=== PATIENT | male | born 1980 | race Two or more races ===

== ENCOUNTER 2024-03-12 22:43 | Emergency (ER) | payer MEDICAID, SELFPAY ==
[2024-03-12 22:44] VITALS: BMI 18.2
[2024-03-12 22:54] VITALS: BP 97/69; PULSE 108; RESP 18; TEMP 36.5; O2SAT 100
--- NOTE | 2024-03-12 22:57 | EKG_ITS ---
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
--- NOTE | 2024-03-12 22:57 | XR_ITS ---
Examination: AP chest single view Technique: AP portable supine chest single view Exam date and time: March 12, 2024 at 11:05 PM Indications: Patient fell today with injury to the chest, chest pain Findings: Normal heart size No pneumothorax or pulmonary contusion The osseous structures are intact Impression: No pneumothorax pulmonary contusion or hemothorax
--- NOTE | 2024-03-12 22:57 | XR_ITS ---
Examination: CT brain head without contrast. 2-D sagittal coronal reconstructions Date and time of exam:March 12, 2024 1139 hrs. Indications: Patient fell today with injury to the head, head pain CTDI: vol (mGy):51.2 DLP: (mGycm):946 Technique: Multiple CT axial sections of the brain have been obtained, 5 mm slice thickness. Contrast has not been administered. 2-D sagittal, coronal reconstructions have been obtained Low dose protocols were performed. One or more of the following dose reduction techniques were used; automated exposure control, adjustment of the mA and/or KV according to patient size, use of iterative reconstruction technique. Findings: No significant ventricular enlargement. Intra-axial or extra-axial hemorrhage density is not seen. No mass effect or midline shift Basal cisterns are not remarkable. Fourth ventricle is midline. Cranial vault intact. Impression: Negative for acute hemorrhage, mass effect or midline shift
--- NOTE | 2024-03-12 22:57 | XR_ITS ---
Examination: Fingers, right hand fifth digit 3 views Technique: AP, oblique, lateral views right hand fifth digit 3 views. Exam date and time: March 12, 2024 1105 hrs. Indications: Black fifth digit beginning 2 days ago. Findings: No acute fracture No dislocation No cortical bone obstruction Impression: No shelley cortical bone obstruction
--- NOTE | 2024-03-12 22:57 | XR_ITS ---
Examination: CT cervical spine without contrast 2-D sagittal reconstructions 2-D coronal reconstructions 3-D reconstructions. Exam date and time:March 12, 2024 at 11:42 PM Indications: Patient fell today with injury to the neck, neck pain CTDI:vol (mGy) 7.57 DLP: (mGycm) 164 Technique: Multiple 2 mm axial sections of the cervical spine have been obtained. The coronal and sagittal reconstructions have been obtained. 3-D reconstructions have been obtained. Low dose protocols were performed. One or more of the following dose reduction techniques were used; automated exposure control, adjustment of the mA and/or KV according to patient size, use of iterative reconstruction technique. Findings: Axial sections demonstrate intact base of the skull. C1 exhibit satisfactory relationship to the odontoid. No acute cervical vertebral body fracture seen. Alignment posterior spinous processes satisfactory. Impression: No acute cervical fracture.
--- NOTE | 2024-03-12 22:57 | XR_ITS ---
Examination:Left hip AP, lateral, AP pelvis 3 views Technique: Hip AP lateral, AP pelvis, 3 views Exam date and time:March 12, 2024 11:05 PM Indications: Patient fell today with injury to the left hip, left hip pain. Findings: Acute markedly displaced fracture left femoral neck, likely pathologic with 4 cm osteolytic lesion in the intertrochanteric region left hip No hip dislocation Impression: Acute markedly displaced left femoral neck fracture Suspicious for pathologic fracture with 4 cm osteolytic area in the intertrochanteric region left hip. Recommend MRI pelvis left hip follow-up
--- NOTE | 2024-03-12 22:58 | PD.EDRME ---
Rapid Medical Screening Exam [facility] Arrival date/time: 03/12/24 22:43 43M with history of DM presents to ED with L hip, head, and neck pain after he got dizzy and fell in the shower. Patient also notes his L pinky finger has been turning black. Chief Complaint: General Adult/Misc Complain Vital signs: Vital Signs Temperature 97.7 F 03/12/24 22:54 Pulse Rate 108 H 03/12/24 22:54 Respiratory Rate 18 03/12/24 22:54 Blood Pressure 97/69 03/12/24 22:54 Pulse Oximetry (%) 100 03/12/24 22:54 Oxygen Delivery Method Room Air 03/12/24 22:54
[2024-03-13] VITALS (12 sets, daily range): BP systolic 96–142; BP diastolic 69–97; PULSE 105–115; RESP 12–20; TEMP 36.6–37.2; O2SAT 96–99
[2024-03-13 00:57] LABS: Lactate (Lactic Acid) 2.4 mMol/L (0.4-2.0)
[2024-03-13 00:58] LABS: Basophils # (Auto) 0.2 Thou/mm3 (0.0-0.2); Basophils % (Auto) 1 % (0-2.5); Eosinophils % (Auto) 0 % (0-10); Hematocrit 28.2 % (41.0-53.0); Hemoglobin 9.4 g/dL (13.5-16.0); Immature Granulocytes % (Auto) 1 % (0-0); Immature Granulocytes Auto 0.18 Thou/mm3 (0.00-0.00); Lymphocytes # (Auto) 0.7 Thou/mm3 (1.0-4.8); Lymphocytes % (Auto) 4 % (10-50); Mean Corpuscular HGB Conc 33.3 g/dl (31.0-37.0); Mean Corpuscular Hemoglobin 29.3 pg (25.0-35.0); Mean Corpuscular Volume 88 fL (80-100); Monocytes % (Auto) 6 % (0-12); Neutrophils # (Auto) 15.8 Thou/mm3 (1.8-7.7); Neutrophils % (Auto) 89 % (37-80); Nucleated Red Blood Cell % 0 /100 WBC (0); Platelet Count 543 Thou/mm3 (140-440); RDW Standard Deviation 42.3 fL (35.1-43.9); Red Blood Count 3.21 Miln/mm3 (4.50-5.90); White Blood Count 17.8 Thou/mm3 (3.8-10.6)
--- NOTE | 2024-03-13 00:58 | EDNOTE_ITS ---
ED General RME/HPI General Chief complaint: General Adult/Misc Complain Stated complaint: GENERALIZE PAIN AFTER FALL IN THE SHOWER Arrival date/time: 03/12/24 22:43 RME / HPI RME / HPI narrative: 03/12/24 22:43 43M with history of DM presents to ED with L hip, head, and neck pain after he got dizzy and fell in the shower. Patient also notes his L pinky finger has been turning black. -------- Dr. Burgos's Main ED Evaluation: 43yo male with pmhx DM, HTN presents to the ED for multiple complaints. Patient states he lost and balance and slipped off his chair around 0830, reporting he hit his head on the side of the couch. Denies any loss of consciousness. Patient states he stayed on the couch for the rest of the day after he fell. He endorses having chest pain, left hip pain, nausea, a questionable fever 2 days ago, a cough, and shortness of breath. He states his foot and right pinky finger have been black for the last 5 days. He denies any headache, neck pain, abdominal pain, back pain, V/D, UTI symptoms or any other associated symptoms. Denies any tobacco or alcohol use. States he quit using illicit drugs 13 years ago. No known allergies. Patient lives at home with his brother. Patient is noncomplaint with his medications, reporting he last saw a doctor 2 and a half years ago. Related Data Previous Rx's ?Medication ?Instructions ?Recorded Hydrocodone/Acetaminophen * (NORCO 1 tab PO Q6H PRN PAIN #14 tabs 03/06/17 5/325 *) insulin glargine 100 unit/mL 15 unit (0.15 mL) subcut HS #10 mL 12/20/21 subcutaneous solution (Lantus U-100 Insulin) blood sugar diagnostic (Accu-Chek #100 ea 12/21/21 Lauren Plus test strips) lancets (Lancets,Ultra Thin) #200 ea 12/21/21 metformin 1,000 mg tablet 1,000 mg PO BID #60 tabs 12/21/21 naproxen 500 mg tablet 500 mg PO BID PRN pain #30 tabs 11/27/22 Allergies Allergy/AdvReac Type Severity Reaction Status Date / Time No Known Allergies Allergy Verified 03/13/24 02:42 Review of Systems Review of Systems Systems Reviewed: All systems reviewed, normal except as documented Narrative Review of Systems: Gen: + fever, no chills, no weight loss EYES: No discharge, no visual changes, no pain HEENT: No ear pain, no congestion, no sore throat PULM: + shortness of breath, + cough, no congestion CV: + chest pain, no dyspnea on exertion, no palpitations GI: + nausea, no vomiting, no diarrhea, no pain, no constipation : No frequency, no urgency, no dysuria Musc/skel: + hip pain, no back pain Skin: No rash. Warm and dry. Psyc: No hallucinations, no depression Heme/Lymph: No easy bleeding or bruising tendencies Neuro: No weakness, no headache ED Exam Narrative Physical exam: GEN. APPEARANCE: Patient is alert awake oriented x3 under no distress, is filthy and obviously does not take care of himself. Patient is very disheveled. VITALS: All vitals were reviewed and the pulse ox is 97% on room air, which is normal according to my interpretation. HEENT: Normocephalic, atraumatic and nontender. Patient has poor vision. Pupils are equal and reactive to light and accommodation. Oral mucosa are moist. NECK: Supple, nontender, no meningismus, no JVD. CHEST: Nontender on palpation, no deformity and no crepitus. CARDIOVASCULAR: Heart regular rhythm no murmur or gallop rub or extra beats; tachycardic. LUNGS: Clear to auscultation bilaterally with symmetrical chest rise. No laboring tachypnea or wheezing. No intercostal subcostal retraction. No rales and no rhonchi. ABDOMEN: Soft, flat, nontender at all, no guarding or rebound tenderness. There are no abnormal masses palpated. No pulsatile masses or bruits. Active and normal bowel sounds. GENITALIA: Not examined. RECTAL EXAM: Not done. EXTREMITIES: Tenderness on palpation to the left hip with shortening of the left leg. N/V is intact. There's dry gangrene to the distal part of his right 5th finger. At the right foot, there's swelling and redness with gangrenous toes. SKIN: Warm and dry, no rashes noted. MUSCULOSKELETAL: No lumbar or midline bony tenderness. There is no CVA tenderness. No paraspinal muscle spasm or tenderness. NEURO: Cranial nerves II through XII grossly intact. There is no focalization. GCS is 15. PSYCHIATRIC: Patient is in normal mood and affect, cooperative. LYMPHATICS: No major lymphadenopathy noted. Course Course Course Narrative: CXR is ordered for determining the etiology of dizziness. 0036: Sepsis alert initiated. Orders made at this time are congruent with ED Adult Sepsis Order List. Re-evaluation is to be completed. Quality Measures Possible source: skin/soft tissue Blood cultures ordered: yes Antibiotic ordered: Yes Pertinent labs: 03/13/24 03/13/24 00:33 04:20 Lactic Acid 2.4 H mMol/L 5.0 H* mMol/L (0.4-2.0) (0.4-2.0) Procalcitonin 26.18 H ng/ml (0.0-0.49) sepsis Orders Category Date Time Status EKG (ED ONLY) *Do not use* NOW Care 03/12/24 22:57 Completed Insert IV NOW Care 03/13/24 00:[address] cervical spine wo con Stat Exams 03/12/24 22:[address] foot RT wo con Stat Exams 03/13/24 01:[address] head/brain wo con Stat Exams 03/12/24 22:[address] hip LT wo con Stat Exams 03/13/24 01:40 Taken EKG (ED Only) Stat Exams 03/12/24 22:57 Draft XR chest 1V portable Stat Exams 03/12/24 22:57 Completed XR femur LT 2V Stat Exams 03/13/24 02:37 Taken XR finger RT min 2V Stat Exams 03/12/24 22:57 Completed XR hip LT w pelvis 2-3V Stat Exams 03/13/24 02:36 Taken XR hip LT w pelvis min 4V Stat Exams 03/12/24 22:57 Completed ABG [Arterial Blood Gas] Stat Lab 03/13/24 03:31 Completed Alcohol, Blood Medical Stat Lab 03/13/24 02:06 Completed Beta Hydroxybutyrate Stat Lab 03/13/24 02:06 Completed Blood Culture (Lab) Stat Lab 03/13/24 00:38 Received CBC Stat Lab 03/12/24 22:57 Completed Comprehensive Metabolic Panel Stat Lab 03/12/24 22:57 Completed Drug Screen,Urine Stat Lab 03/13/24 01:57 Completed INR [Prothrombin Time with INR] Stat Lab 03/12/24 23:53 Completed Lactate (Lactic Acid) Stat Lab 03/12/24 22:58 Completed Lactic Acid, 3 HR Stat Lab 03/13/24 04:20 Completed PTT [Partial Thromboplastin Time] Stat Lab 03/12/24 23:53 Completed Procalcitonin Stat Lab 03/12/24 22:57 Completed Troponin I Stat Lab 03/12/24 22:57 Completed Type and Screen Stat Lab 03/13/24 04:20 Results Urinalysis Stat Lab 03/13/24 01:57 Completed Insulin Reg 100 Units/100 ml [Myxredlin] Med 03/13/24 02:06 Active 100 unit in 100 ml IV 0.1 unit/kg/hr Insulin Regular Med 03/13/24 01:45 Discontinued 15 unit IV X1 ONE POTASSIUM CHL 10 mEq IVPB [Kcl Ivpb] Med 03/13/24 02:29 Discontinued 10 meq in 100 ml IV X1 Piper/Tazo 3.375 gm [Zosyn] Med 03/13/24 02:01 Discontinued 3.375 gm in 50 ml IV X1 Sodium Chloride 0.9% 1000 ml [Ns] 1,000 ml Med 03/13/24 00:59 Discontinued IV 999 mls/hr Sodium Chloride 0.9% 1000 ml [Ns] 1,000 ml Med 03/13/24 04:51 Active IV 999 mls/hr Vancomycin Inj 1,000 mg Med 03/13/24 02:01 Discontinued Sodium Chloride 0.9% 250 ml [Ns] 250 ml IV X1 Vital Signs Vital signs: Vital Signs Temperature 97.7 F 03/12/24 22:54 Pulse Rate 108 H 03/12/24 22:54 Respiratory Rate 18 03/12/24 22:54 Blood Pressure 97/69 03/12/24 22:54 Pulse Oximetry (%) 100 03/12/24 22:54 Oxygen Delivery Method Room Air 03/12/24 22:54 Procedures -ED EKG Interpretation #1: Date of EK03/13/24 Rate: 110 Interpretation: Interpreted by me EKG Impression: Normal sinus rhythm, No ectopy, No ischemic changes, Sinus tachycardia, Normal QRS, Normal intervals, Normal axis and Non-specific ST-T MDM Patient data External records reviewed:: [facility] previous records (Per chart review, patient was seen here on 11/27/22 for an acute internal derangement of the knee.) Clinical information provided by:: patient Social determinants that could affect healthcare access:: none Patient has the following chronic illnesses:: DM, HTN How is presenting disease/condition affected by chronic disease/condition?: e xacerbated by Evaluation data The following diagnostics were reviewed and interpreted by me:: lab results, radiology exam(s) and EKG tracing(s) Lab and/or radiology exams considered but not ordered:: none Interpretation Summary: See below under MDM narrative. ----- [facility] Signed Patient: NOEL SHAFFER [facility]. Record#: [id number] Birthdate: 1980 Age/Sex: 43 / M Location: [facility] Attending Dr: Ordering Physician: Bret Espinosa PA-C Date of Service: 03/12/24 Procedure(s): XR chest 1V portable Accession Number(s): [id number] cc: Filiberto Sexton MD; Bret Espinosa PA-C; Temporary Provider,ED ~ Examination: AP chest single view Technique: AP portable supine chest single view Exam date and time: March 12, 2024 at 11:05 PM Indications: Patient fell today with injury to the chest, chest pain Findings: Normal heart size No pneumothorax or pulmonary contusion The osseous structures are intact Impression: No pneumothorax pulmonary contusion or hemothorax Dictated By: Filiberto Sexton MD Signed By: <Electronically signed by Filiberto Sexton MD in > 03/12/24 2343 -------- [facility] Signed Patient: NOEL SHAFFER [facility]. Record#: [id number] Birthdate: 1980 Age/Sex: 43 / M Location: [facility] Attending Dr: Ordering Physician: Bret Espinosa PA-C Date of Service: 03/12/24 Procedure(s): XR finger RT min 2V Accession Number(s): [id number] cc: Filiberto Sexton MD; Bret Espinosa PA-C; Temporary Provider,ED ~ Examination: Fingers, right hand fifth digit 3 views Technique: AP, oblique, lateral views right hand fifth digit 3 views. Exam date and time: March 12, 2024 1105 hrs. Indications: Black fifth digit beginning 2 days ago. Findings: No acute fracture No dislocation No cortical bone obstruction Impression: No shelley cortical bone obstruction Dictated By: Filiberto Sexton MD Signed By: <Electronically signed by Filiberto Sexton MD in OV> 03/12/246 ------ [facility] Signed Patient: NOEL SHAFFER [facility]. Record#: [id number] Birthdate: 1980 Age/Sex: 43 / M Location: [facility] Attending Dr: Ordering Physician: Bret Espinosa PA-C Date of Service: 03/12/24 Procedure(s): XR hip LT w pelvis min 4V Accession Number(s): [id number] cc: Filiberto Sexton MD; Bret Espinosa PA-C; Temporary Provider,ED ~ Examination:Left hip AP, lateral, AP pelvis 3 views Technique: Hip AP lateral, AP pelvis, 3 views Exam date and time:March 12, 2024 11:05 PM Indications: Patient fell today with injury to the left hip, left hip pain. Findings: Acute markedly displaced fracture left femoral neck, likely pathologic with 4 cm osteolytic lesion in the intertrochanteric region left hip No hip dislocation Impression: Acute markedly displaced left femoral neck fracture Suspicious for pathologic fracture with 4 cm osteolytic area in the intertrochanteric region left hip. Recommend MRI pelvis left hip follow-up Dictated By: Filiberto Sexton MD Signed By: <Electronically signed by Filiberto Sexton MD in OV> 03/12/248 ----- [facility] Preliminary Report Draft Patient: NOEL SHAFFER [facility]. Record#: [id number] Birthdate: 1980 Age/Sex: 43 / M Location: [facility] Attending Dr: Ordering Physician: Date of Service: Procedure(s): Accession Number(s): cc: ~ CT scan of the head without intravenous contrast (axial sections with sagittal and coronal reformats) March 12, 2024 at 2339 hours Clinical History: Fall No prior study is available for comparison. Findings: There is no evidence of intracranial hemorrhage, mass effect or midline shift.There is mild volume loss. The calvarium is intact. There is mild mucosal thickening in the left sphenoid sinus. The mastoid air cells and the visualized paranasal sinuses are clear. Impression: No evidence of intracranial hemorrhage, midline shift or calvarial fracture Mild volume loss. Report Electronically Signed By: Jt Sanford 03/13/2024 1:09:59 AM [EST] ----- [facility] Preliminary Report Draft Patient: NOEL SHAFFER [facility]. Record#: [id number] Birthdate: 1980 Age/Sex: 43 / M Location: [facility] Attending Dr: Ordering Physician: Date of Service: Procedure(s): Accession Number(s): cc: ~ CT scan of the cervical spine without intravenous contrast (axial sections with sagittal and coronal reformats); March 12, 2024 at 2339 hours Clinical History: Fall No prior study is available for comparison. Findings: There is no fracture or subluxation. The prevertebral soft tissues are unremarkable. Impression: No evidence of fracture or subluxation. Report Electronically Signed By: Jt Sanford 03/13/2024 1:12:32 AM [EST] -------- [facility] Preliminary Report Draft Patient: NOEL SHAFFER [facility]. Record#: [id number] Birthdate: 1980 Age/Sex: 43 / M Location: [facility] Attending Dr: Ordering Physician: Date of Service: Procedure(s): Accession Number(s): cc: ~ CT scan of the left hip without intravenous contrast (axial sections with sagittal and coronal reformats) March 13, 2024 0248 hours Clinical History: Fracture. cystic lesion? Comparison: No prior study is available for comparison. Findings: There is heterogeneous soft tissue density lesion in the left hip region causing destruction of the left femoral neck, head and lesser trochanter, the lesion is also extending to the adjacent iliopsoas and vastus intermedius muscles, approximately measuring up to 6.8x8.5x7.5cm. There are multiple air loculi in the femoral head and within the vastus intermedius. Mild diffuse subcutaneous soft tissue edema is noted in the left upper thigh. The other visualized bones are intact. There is small hip joint effusion. The visualized sacroiliac joints are unremarkable. Mild chronic cystitis versus urinary bladder outflow obstruction is noted due to mild to moderate prostatomegaly. The other visualized soft tissues including pelvic viscera are unremarkable. Impression: Large heterogeneous osteolytic lesion in the left hip region associated with pathological fracture of the left proximal femur. Multiple free air loculi in the femoral head and within the adjacent muscles as described. above, suggest deep tissue infection. Recommend clinical correlation and follow-up. Other findings as described above. Report Electronically Signed By: Fco Fernández 03/13/2024 4:57:28 AM [EST] ------- [facility] Preliminary Report Draft Patient: NOEL SHAFFER. Record#: [id number] Birthdate: 1980 Age/Sex: 43 / M Location: [facility] Attending Dr: Ordering Physician: Date of Service: Procedure(s): Accession Number(s): cc: ~ CT scan of the right foot without intravenous contrast (axial sections with sagittal and coronal reformats): March 13, 2024 at 0242 hours Clinical History: Gangrene. Comparison: No prior study is available for comparison. Findings: There is age indeterminate comminuted fracture of the proximal phalanx of the great toe with lytic changes within the bone and adjacent soft tissue swelling and free air. There are also age indeterminate displaced fractures of the 2nd, 3rd and 4th metatarsal heads with intraosseous free air loculi and in the adjacent surrounding soft tissues. Extensive free air is also noted within the soft tissues around the proximal phalanges of the 2nd,3rd and 4rth toes. Diffuse subcutaneous soft tissue edema of the foot is noted. There is severe diffuse osteopenia. The alignment is maintained. The other visualized bones are unremarkable. The ankle mortise is intact. The retrocalcaneal region is unremarkable. The sinus tarsi is within normal limits. The visualized muscles and tendons are grossly unremarkable. Impression: Findings suggestive of extensive severe deep tissue infection in the forefoot with associated multiple age indeterminate pathological fractures in the 1st, 2nd, 3rd and 4th toes as described above. Osteomyelitic changes in the proximal phalanx of the great toe. Recommend clinical correlation and follow-up. Report Electronically Signed By: Fco Fernández 03/13/2024 5:17:32 AM [EST] Medications Medications considered but not ordered:: none Medication administrations:: Medication Administration History Insulin Human Regular (Myxredlin) 100 unit in 100 mls @ 6.5 mls/hr IV .[id number] PRN; Protocol PRN Reason: PER PROTOCOL Stop: 04/12/24 02:05 Last Titration: 03/13/24 04:30 Dose: 0.1 unit/kg/hr, 6.5 mls/hr Documented By: SHALOM Co-signed By: REN Titration: 03/13/24 03:48 Dose: 0.1 unit/kg/hr, 6.5 mls/hr Documented By: SHALOM Co-signed By: SE Admin: 03/13/24 02:26 Dose: 0.1 unit/kg/hr, 6.5 mls/hr Documented By: SHALOM Co-signed By: IAN Sodium Chloride (Ns) 1,000 mls @ 999 mls/hr IV .Q1H1M ONE Stop: 03/13/24 05:51 Last Admin: 03/13/24 05:02 Dose: 999 mls/hr Documented By: SHALOM Discontinued Medications Sodium Chloride (Ns) 1,000 mls @ 999 mls/hr IV .Q1H1M ONE Stop: 03/13/24 01:59 Last Infusion: 03/13/24 01:38 Dose: Infused Documented By: Admin: 03/13/24 01:06 Dose: 999 mls/hr Documented By: SHALOM Vancomycin HCl 1,000 mg/ (Sodium Chloride) 250 mls @ 150 mls/hr IV X1 ONE Stop: 03/13/24 03:40 Last Infusion: 03/13/24 04:50 Dose: Infused Documented By: Admin: 03/13/24 02:20 Dose: 150 mls/hr Documented By: SHALOM Piperacillin/Tazobactam/Dextrose (Zosyn) 3.375 gm in 50 mls @ 100 mls/hr IV X1 ONE Stop: 03/13/24 02:30 Last Infusion: 03/13/24 02:37 Dose: Infused Documented By: Admin: 03/13/24 02:13 Dose: 100 mls/hr Documented By: SHALOM Potassium Chloride (Kcl Ivpb) 10 meq in 100 mls @ 100 mls/hr IV X1 ONE Stop: 03/13/24 03:28 Last Infusion: 03/13/24 04:50 Dose: Infused Documented By: Admin: 03/13/24 03:47 Dose: 100 mls/hr Documented By: SHALOM Insulin Human Regular (Insulin Hum Regular 1 Unit/0.01 Ml (Per Unit)) 15 unit IV X1 ONE Stop: 03/13/24 01:46 Last Admin: 03/13/24 01:50 Dose: 15 unit Documented By: SHALOM Co-signed By: ELIZABETH see above Consultations Consultation(s) initiated? (list below): Yes Diagnosis Differential Diagnosis ED Complaint MDM: left hip fx, left hip dislocation, sepsis, gangrene, hyperglycemia, DKA Most likely diagnosis given after review of the tests above:: see below Admission Indicated Admission indicated?: not indicated Explain why admission is indicated or not indicated:: Patient requires a higher [id number]. Admission Request Was there a request for admission?: No Disposition Plan Disposition Plan: other (specify) (Signed out to the next oncoming provider at 0600 pending transfer.) Medical Decision Making MDM Narrative MDM Narrative: Scribe Attestation: 03/13/24 - Annie Rodriguez am scribing for and in the presence of Dr. Burgos. Patient comes in by private vehicle with left hip pain. Patient states that he slipped and fell in the shower this past day in the morning and hit his left leg. His brother helped him to get up. And then he laid down and finally tonight he decided to come in to be evaluated. He did hit his head but he did not lose consciousness. He denies any headache or neck pain. He denies any chest pain or abdominal pain or back pain. He was nauseated but he did not vomit nor had diarrhea. He questions fever 2 days ago but not today. Here is temperature was 97.7 orally upon arrival. He denies UTI symptoms. He says that he has been coughing a little bit and had some shortness of breath because of the pain. Patient does not complain himself but on general physical exam, he has gangrene of the distal right fifth finger as well as the distal right foot, including all his toes. He says that last time he saw Was 2 and half years ago in [place]. He is diabetic and he has high blood pressure and it seems like that his vision is very poor despite the fact that he does not complain about it. He does not seem to be short of breath. On the physical exam, patient has gangrene of his distal part of the right fifth finger and also gangrene of the distal part of his right foot. He says that these happen in the last 5 days, which I doubt. The right foot is also swollen and red proximally. He is unable to move his left lower extremity due to pain in his left hip. His CBC shows a white count of 18 with 89 segs 0 bands and 4 lymphs H&H of 9.4 and 28; his platelet count is adequate. His sodium is 120 potassium is 3.2 and his chloride is 80. Therefore he is getting 2 L of normal saline IV wide open and I will give him 10 mEq of potassium IV also. His BUN and creatinine are elevated at 45 and 1.6 respectively. His blood sugar is 810. He is acidotic with CO2 of 16.7 and anion gap elevated at 19 which means that he is in DKA. His lactic acid is 2.4 but his procalcitonin is 26. I gave him Zosyn and vancomycin. At 2:20 AM I discussed this case with Dr. Dennis, our orthopedic doctor on-call, and he wants to wait for the results of the CAT scan of the left hip. At 5:10 AM, I received the results of the CAT scan of the left hip. The telemetry radiologist says that he has a large heterogeneous osteolytic lesion in the left hip region associated with pathological fracture of the left proximal femur. Multiple free air loculi in the femoral head and within the adjacent muscles suggesting deep tissue infection. Therefore I communicated this to Dr. Dennis and he recommended that the patient be transferred to a higher level of care. Therefore, this case will be passed onto the next oncoming doctor. Provider Notation: Although this document has been carefully reviewed, there may still be some phonetic and other typographical errors. These errors are purely grammatical due to imperfections in the software program and should not be construed in any way to compromise the substance of the patient's medical care during this visit. Differential Diagnosis Differential Diagnosis: left hip fx, left hip dislocation, sepsis, gangrene, hyperglycemia, DKA Lab Data 03/13/24 00:33 03/13/24 00:33 Labs: Lab Results 03/13/24 03/13/24 03/13/24 Range/Units 00:33 01:57 02:06 WBC 17.8 H (3.8-10.6) Thou/mm3 RBC 3.21 L (4.50-5.90) Miln/mm3 Hgb 9.4 L (13.5-16.0) g/dL Hct 28.2 L (41.0-53.0) % MCV 88 (80-100) fL MCH 29.3 (25.0-35.0) pg MCHC 33.3 (31.0-37.0) g/dl RDW Std Deviation 42.3 (35.1-43.9) fL Plt Count 543 H (140-440) Thou/mm3 Neut % (Auto) 89 H (37-80) % Lymph % (Auto) 4 L (10-50) % Blount % (Auto) 6 (0-12) % Eos % (Auto) 0 (0-10) % Baso % (Auto) 1 (0-2.5) % Neut # (Auto) 15.8 H (1.8-7.7) Thou/mm3 Lymph # (Auto) 0.7 L (1.0-4.8) Thou/mm3 Blount # (Auto) 1.0 H (0.0-0.8) Thou/mm3 Eos # (Auto) 0.0 (0.0-0.5) Thou/mm3 Baso # (Auto) 0.2 (0.0-0.2) Thou/mm3 Immature Gran # (Auto) 0.18 H (0.00-0.00) Thou/mm3 Absolute Nucleated RBC 0.00 (0.00-0.00) Thou/mm3 Immature Gran % 1 H (0-0) % Nucleated RBC % 0 (0) /100 WBC PT 12.0 (9.0-12.2) Seconds INR 1.1 (0.9-1.3) APTT 35.6 (22.0-36.0) Seconds Puncture Site ABG pH (7.35-7.45) ABG pCO2 (32.0-48.0) mmHg ABG pO2 (83-108) mmHg ABG HCO3 (20-26) mEq/L ABG O2 Saturation (91-98) % ABG Base Excess (-3-3) FiO2 % Sodium 120 L (136-145) mMol/L Potassium 3.2 L (3.4-5.1) mMol/L Chloride 84 L (98-107) mMol/L Carbon Dioxide 16.7 L (20.0-31.0) mMol/L Anion Gap 19 H (7-16) BUN 45 H (9-23) mg/dL Creatinine 1.6 H (0.6-1.3) mg/dL Estim Creat Clear Calc 45.4 L (>60) mL/min eGFR 54 L (60 - ) See Note BUN/Creatinine Ratio 28 H (12-20) Ratio Glucose 810 H* (74-106) mg/dL Calculated Osmolality 293 (275-295) Lactic Acid 2.4 H (0.4-2.0) mMol/L Calcium 8.8 (8.3-10.6) mg/dL Corrected Calcium 9.8 (8.5-10.1) mg/dL Total Bilirubin 0.2 L (0.3-1.2) mg/dL AST 22 (0-34) U/L ALT 13 (10-49) U/L Alkaline Phosphatase 133 H (46-116) U/L Troponin I < 0.020 (0.0-0.045) ng/mL Total Protein 6.2 (5.7-8.2) gm/dL Albumin 2.7 L (3.5-5.0) gm/dL Globulin 3.5 (2.3-3.5) gm/dL Albumin/Globulin Ratio 0.8 L (1.2-2.2) Beta-Hydroxybutyrate/Acetoacetate > 6.4 H (<0.6) mmol/L Procalcitonin 26.18 H (0.0-0.49) ng/ml Ur Collection Type Clean Catch Urine Color Lt-Yellow (Lt Yel-Yel) Urine Clarity Clear (Clear/Hazy) Urine pH 6.0 (5.0-7.0) Ur Specific [place] 1.024 (1.001-1.035) Urine Protein 1+ A (Neg - Trace) Urine Glucose (UA) 4+ A (Negative) Urine Ketones 2+ A (Negative) Urine Blood 2+ A (Negative) Urine Nitrite Negative (Negative) Urine Bilirubin Negative (Negative) Urine Urobilinogen (Auto) Negative (0.0-1.0) mg/dL Ur Leukocyte Esterase Negative (Negative) Urine RBC 20 H (0-3) /hpf Urine WBC 0 (0-5) /hpf Ur Squamous Epith Cells 0 (0-5) /hpf Urine Bacteria None (None) Urine Opiates Screen Negative (Negative) Urine Fentanyl Screen Negative (Negative) Ur Barbiturates Screen Negative (Negative) U Amphetamin/Meth Scrn Positive A (Negative) U Benzodiazepines Scrn Negative (Negative) U Cocaine Metab Screen Negative (Negative) U Marijuana (THC) Screen Negative (Negative) Ethyl Alcohol < 3.0 (0-10.0) mg/dL Blood Bank Wristband ID 03/13/24 03/13/24 Range/Units 03:31 04:20 WBC (3.8-10.6) Thou/mm3 RBC (4.50-5.90) Miln/mm3 Hgb (13.5-16.0) g/dL Hct (41.0-53.0) % MCV (80-100) fL MCH (25.0-35.0) pg MCHC (31.0-37.0) g/dl RDW Std Deviation (35.1-43.9) fL Plt Count (140-440) Thou/mm3 Neut % (Auto) (37-80) % Lymph % (Auto) (10-50) % Blount % (Auto) (0-12) % Eos % (Auto) (0-10) % Baso % (Auto) (0-2.5) % Neut # (Auto) (1.8-7.7) Thou/mm3 Lymph # (Auto) (1.0-4.8) Thou/mm3 Blount # (Auto) (0.0-0.8) Thou/mm3 Eos # (Auto) (0.0-0.5) Thou/mm3 Baso # (Auto) (0.0-0.2) Thou/mm3 Immature Gran # (Auto) (0.00-0.00) Thou/mm3 Absolute Nucleated RBC (0.00-0.00) Thou/mm3 Immature Gran % (0-0) % Nucleated RBC % (0) /100 WBC PT (9.0-12.2) Seconds INR (0.9-1.3) APTT (22.0-36.0) Seconds Puncture Site Left Radial ABG pH 7.32 L (7.35-7.45) ABG pCO2 36 (32.0-48.0) mmHg ABG pO2 78 L (83-108) mmHg ABG HCO3 19 L (20-26) mEq/L ABG O2 Saturation 95 (91-98) % ABG Base Excess -7 L (-3-3) FiO2 21 % Sodium (136-145) mMol/L Potassium (3.4-5.1) mMol/L Chloride (98-107) mMol/L Carbon Dioxide (20.0-31.0) mMol/L Anion Gap (7-16) BUN (9-23) mg/dL Creatinine (0.6-1.3) mg/dL Estim Creat Clear Calc (>60) mL/min eGFR (60 - ) See Note BUN/Creatinine Ratio (12-20) Ratio Glucose (74-106) mg/dL Calculated Osmolality (275-295) Lactic Acid 5.0 H* (0.4-2.0) mMol/L Calcium (8.3-10.6) mg/dL Corrected Calcium (8.5-10.1) mg/dL Total Bilirubin (0.3-1.2) mg/dL AST (0-34) U/L ALT (10-49) U/L Alkaline Phosphatase (46-116) U/L Troponin I (0.0-0.045) ng/mL Total Protein (5.7-8.2) gm/dL Albumin (3.5-5.0) gm/dL Globulin (2.3-3.5) gm/dL Albumin/Globulin Ratio (1.2-2.2) Beta-Hydroxybutyrate/Acetoacetate (<0.6) mmol/L Procalcitonin (0.0-0.49) ng/ml Ur Collection Type Urine Color (Lt Yel-Yel) Urine Clarity (Clear/Hazy) Urine pH (5.0-7.0) Ur Specific [place] (1.001-1.035) Urine Protein (Neg - Trace) Urine Glucose (UA) (Negative) Urine Ketones (Negative) Urine Blood (Negative) Urine Nitrite (Negative) Urine Bilirubin (Negative) Urine Urobilinogen (Auto) (0.0-1.0) mg/dL Ur Leukocyte Esterase (Negative) Urine RBC (0-3) /hpf Urine WBC (0-5) /hpf Ur Squamous Epith Cells (0-5) /hpf Urine Bacteria (None) Urine Opiates Screen (Negative) Urine Fentanyl Screen (Negative) Ur Barbiturates Screen (Negative) U Amphetamin/Meth Scrn (Negative) U Benzodiazepines Scrn (Negative) U Cocaine Metab Screen (Negative) U Marijuana (THC) Screen (Negative) Ethyl Alcohol (0-10.0) mg/dL Blood Bank Wristband ID Yes Critical Care Time Critical Care Time Critical Care Time: Yes Total Critical Care Time (min.): 60 Attestation: The high probability of sudden, clinically significant deterioration in the patient?s condition required the highest level of my preparedness to intervene urgently. The services I provided to this patient were to treat and/or prevent clinically significant deterioration. Services included the following: chart data review, reviewing nursing notes and/or old charts, documentation time, strategic planning consultant collaboration regarding findings and treatment options, medication orders and management, direct patient care, vital sign assessments and ordering, interpreting and reviewing diagnostic studies and lab tests. Aggregate critical care time includes only time during which I was engaged in work directly related to the patient?s care, as described above, whether at bedside or elsewhere in the Emergency Department. It did not include time spent performing other reported procedures or the services of residents, students, nurses or physician assistants. Discharge Plan Prescriptions/Referrals Prescriptions/Med Rec: No Action Hydrocodone/Acetaminophen * (NORCO 5/325 *) 1 TAB tablet 1 tab PO Q6H PRN (Reason: PAIN) Qty: 14 0RF Patient Comments: Has not been taking any pain meds. insulin glargine [Lantus U-100 Insulin] 100 unit/mL Solution 15 unit subcut HS Qty: 10 0RF metformin 1,000 mg tablet 1,000 mg PO BID Qty: 60 0RF (DME) lancets [Lancets,Ultra Thin] Misc See Rx Instructions .Route Qty: 200 0RF Rx Instructions: As directed (DME) Accu-Chek Lauren Plus test strp Strip See Rx Instructions .Route Qty: 100 0RF Rx Instructions: As directed naproxen 500 mg tablet 500 mg PO BID PRN (Reason: pain) Qty: 30 0RF Referrals: Temporary Provider,ED [Physician] - In 1 week Problem List Clinical Impression: Fall, Fracture of femoral neck, left, closed, Electrolyte imbalance, DKA (diabetic ketoacidosis), Noncompliance with medication regimen, Gangrene of right foot, Gangrene of finger of right hand, 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
[2024-03-13] MEDS: SODIUM CHLORIDE 0.9% 1000 ML 1,000 ML 999 ML IV ×2 (01:06→05:02)
--- NOTE | 2024-03-13 01:10 | PRELIM_ITS ---
CT scan of the head without intravenous contrast (axial sections with sagittal and coronal reformats) March 12, 2024 at 2339 hoursClinical History: FallNo prior study is available for comparison. Marcelo escamillas:There is no evidence of intracranial hemorrhage, mass effect or midline shift.There is mild vol ume loss. The calvarium is intact. There is mild mucosal thickening in the left sphenoid sinus. The m astoid air cells and the visualized paranasal sinuses are clear.Impression:No evidence of intracrania l hemorrhage, midline shift or calvarial fractureMild volume loss. Report Electronically Signed By: Isabel Sanford 03/13/2024 1:09:59 AM [EST]
--- NOTE | 2024-03-13 01:13 | PRELIM_ITS ---
CT scan of the cervical spine without intravenous contrast (axial sections with sagittal and coronal reformats); March 12, 2024 at 2339 hours Clinical History: Fall No prior study is available for co mparison. Findings:There is no fracture or subluxation. The prevertebral soft tissues are unremarkabl e.Impression:No evidence of fracture or subluxation. Report Electronically Signed By: Jt Sanford 1 05/13/2023 1:12:32 AM [EST]
[2024-03-13 01:25] LABS: INR 1.1 (0.9-1.3); Partial Thromboplastin Time 35.6 Seconds (22.0-36.0)
--- NOTE | 2024-03-13 01:37 | XR_ITS ---
Examination: CT right foot, without contrast. 2-D sagittal reconstructions. 2-D coronal reconstructions. 3-D reconstructions. Date and time of exam:March 13, 2024 at 0242 hrs. Indications: Gangrene right ankle redness swelling and pain this week CTDI: vol (mGy):5.67 DLP: (mGycm):161 Technique: Multiple 1.25 mm axial sections of the right foot without intravenous contrast have been obtained. 2-D sagittal and coronal reconstructions have been obtained. 3-D reconstructions have been obtained. Low dose protocols were performed. One or more of the following dose reduction techniques were used; automated exposure control, adjustment of the mA and/or KV according to patient size, use of iterative reconstruction technique. Findings: Severe osteopenia Marked cortical bone obstruction involving the proximal phalanx first digit Cortical bone destruction distal second metatarsal Fractures involving the distal second third and fourth metatarsals Extensive soft tissue infection with air density in the forefoot Impression: Extensive forefoot soft tissue infection Osteomyelitis proximal phalanx first digit, distal second metatarsal Fractures distal second third and fourth metatarsals MRI foot without contrast follow-up would be helpful in assessing full extent of osteomyelitis as well as soft tissue abscess
[2024-03-13 01:40] LABS: Alanine Aminotransferase 13 U/L (10-49); Albumin, Serum 2.7 gm/dL (3.5-5.0); Albumin/Globulin Ratio 0.8 (1.2-2.2); Alkaline Phosphatase 133 U/L (46-116); Anion Gap 19 (7-16); Aspartate Amino Transferase 22 U/L (0-34); BUN/Creatinine Ratio 28 Ratio (12-20); Bilirubin,Total 0.2 mg/dL (0.3-1.2); Blood Urea Nitrogen 45 mg/dL (9-23); Calcium 8.8 mg/dL (8.3-10.6); Calcium (Corrected) 9.8 mg/dL (8.5-10.1); Carbon Dioxide 16.7 mMol/L (20.0-31.0); Chloride 84 mMol/L (98-107); Creatinine (Component) 1.6 mg/dL (0.6-1.3); Estimated Creatinine Clearance 45.4 mL/min (>60); Globulin 3.5 gm/dL (2.3-3.5); Osmolality,Calculated 293 (275-295); Potassium 3.2 mMol/L (3.4-5.1); Procalcitonin 26.18 ng/ml (0.0-0.49); Sodium 120 mMol/L (136-145); Total Protein 6.2 gm/dL (5.7-8.2); Troponin I < 0.020 ng/mL (0.0-0.045); eGFR 54 See Note
--- NOTE | 2024-03-13 01:40 | XR_ITS ---
Examination: CT left hip, without contrast. CT pelvis without intravenous contrast 2-D sagittal reconstructions. 2-D coronal reconstructions. 3-D reconstructions. Date and time of exam:Patient fell today with injury to the left hip, left hip pain CTDI: vol (mGy):6.51 DLP: (mGycm):234 Technique: Multiple 1.25 mm axial sections of the pelvis left hip have been obtained. 2-D sagittal and coronal reconstructions have been obtained. 3-D reconstructions have been obtained. Low dose protocols were performed. One or more of the following dose reduction techniques were used; automated exposure control, adjustment of the mA and/or KV according to patient size, use of iterative reconstruction technique. Findings: Pathologic fracture involving the left femoral neck and intertrochanteric region left hip with very large lytic lesion destroying the left femoral neck and part of the intertrochanteric region left hip, at least 4.1 x 4.5 cm Soft tissue mass surrounding the left hip consistent with tumor and possible infection, multiple air densities anterior to the left femoral shaft Urinary bladder wall thickening Impression: Pathologic fracture left femoral neck and left intertrochanteric region left hip with large osteolytic lesion in extensive soft tissue tumor and/or infection surrounding the left hip Consider whole body bone scan, plain film metastatic bone survey follow-up
[2024-03-13 01:45] LABS: Glucose 810 mg/dL (74-106)
[2024-03-13] MEDS: INSULIN HUM REGULAR 1 UNIT/0.01 ML (PER UNIT) 15 UNIT IV (01:50)
[2024-03-13] MEDS: PIPER/TAZO 3.375 GM 3.375 GM/50 ML BAG IV (02:13)
[2024-03-13 02:15] LABS: Collection Type, Urine Clean Catch; Squamous Epithelial Cell,Urine 0 /hpf (0-5); WBC,Urine 0 /hpf (0-5)
[2024-03-13] MEDS: Vancomycin Inj 1,000 MG in SODIUM CHLORIDE 0.9% 250 ML 250 ML 150 MG IV (02:20)
[2024-03-13] MEDS: INSULIN REG 100 UNITS/100 ML 100 UNIT/100 ML BAG 6.5 UNIT IV (02:26)
[2024-03-13 02:33] LABS: Bilirubin,Urine Negative (Negative); Blood,Urine 2+ (Negative); Clarity,Urine Clear (Clear/Hazy); Color,Urine Lt-Yellow (Lt Yel-Yel); Glucose, Urine 4+ (Negative); Ketones,Urine 2+ (Negative); Leukocyte Esterase,Urine Negative (Negative); Nitrite,Urine Negative (Negative); Protein,Urine 1+ (Neg - Trace); RBC,Urine 20 /hpf (0-3); Specific Gravity,Urine 1.024 (1.001-1.035); Urobilinogen,Urine Negative mg/dL (0.0-1.0)
--- NOTE | 2024-03-13 02:36 | XR_ITS ---
Examination:Left hip AP, lateral, AP pelvis 3 views Technique: Hip AP lateral, AP pelvis, 3 views Exam date and time:March 13, 2024 0305 hours INDICATIONS: Onset left hip pain today. FINDINGS: Pathologic appearing displaced fracture left femoral neck with large lytic lesion in the femoral neck and intertrochanteric region left hip, at least 3.7 cm Right hip bones of the pelvis intact IMPRESSION: Pathologic left hip fracture.
--- NOTE | 2024-03-13 02:37 | XR_ITS ---
Examination: Left femur 2 views Technique one AP lateral left femur 2 views Exam date and time: March 13, 2024 1509 hours INDICATIONS: Left hip fracture today FINDINGS: Pathologic left hip fracture again noted Shaft of femur grossly intact Prominent osteopenia IMPRESSION: Again noted displaced pathologic left hip fracture
[2024-03-13 02:41] LABS: Alcohol, Blood Medical < 3.0 mg/dL (0-10.0)
[2024-03-13 02:45] LABS: Beta Hydroxybutyrate > 6.4 mmol/L (<0.6)
[2024-03-13 02:48] LABS: Amphetamine/Methamp Scrn,U Positive (Negative); Barbiturate Screen,Urine Negative (Negative); Benzodiazepines Screen,Urine Negative (Negative); Benzoylecgonine Screen, Ur Negative (Negative); Opiate Screen,Urine Negative (Negative); THC Screen,Urine Negative (Negative)
[2024-03-13 02:50] LABS: Fentanyl Screen,Urine Negative (Negative)
[2024-03-13 03:37] LABS: Base Excess -7 (-3-3); HCO3 19 mEq/L (20-26); Inspired Oxygen, FIO2 21 %; O2 Saturation 95 % (91-98); PCO2 36 mmHg (32.0-48.0); PO2 78 mmHg (83-108); pH, Arterial 7.32 (7.35-7.45)
[2024-03-13 03:42] LABS: Allen Test Performed/OK; Puncture Site Left Radial
[2024-03-13] MEDS: POTASSIUM CHL 10 mEq IVPB 10 MEQ/100 ML BAG 100 MEQ IV (03:47)
[2024-03-13 03:52] LABS: Reflex Lactate? Y
--- NOTE | 2024-03-13 04:57 | PRELIM_ITS ---
CT scan of the left hip without intravenous contrast (axial sections with sagittal and coronal reform ats) March 13, 2024 0248 hours Clinical History: Fracture. cystic lesion? Comparison: No prior edilberto dy is available for comparison. Findings:There is heterogeneous soft tissue density lesion in the lef t hip region causing destruction of the left femoral neck, head and lesser trochanter, the lesion is also extending to the adjacent iliopsoas and vastus intermedius muscles, approximately measuring up t o 6.8x8.5x7.5cm. There are multiple air loculi in the femoral head and within the vastus intermedius. Mild diffuse subcutaneous soft tissue edema is noted in the left upper thigh. The other visualized b ones are intact.There is small hip joint effusion. The visualized sacroiliac joints are unremarkable. Mild chronic cystitis versus urinary bladder outflow obstruction is noted due to mild to moderate pro statomegaly.The other visualized soft tissues including pelvic viscera are unremarkable.Impression:La rge heterogeneous osteolytic lesion in the left hip region associated with pathological fracture of t he left proximal femur. Multiple free air loculi in the femoral head and within the adjacent muscles as described. above, suggest deep tissue infection. Recommend clinical correlation and follow-up. Oth er findings as described above. Report Electronically Signed By: Fco Fernández 03/13/2024 4:57:28 AM [EST]
--- NOTE | 2024-03-13 05:18 | PRELIM_ITS ---
CT scan of the right foot without intravenous contrast (axial sections with sagittal and coronal refo rmats): March 13, 2024 at 0242 hours Clinical History: Gangrene. Comparison: No prior study is kal ilable for comparison. Findings:There is age indeterminate comminuted fracture of the proximal phalan x of the great toe with lytic changes within the bone and adjacent soft tissue swelling and free air. There are also age indeterminate displaced fractures of the 2nd, 3rd and 4th metatarsal heads with i ntraosseous free air loculi and in the adjacent surrounding soft tissues. Extensive free air is also noted within the soft tissues around the proximal phalanges of the 2nd,3rd and 4rth toes. Diffuse stewart bcutaneous soft tissue edema of the foot is noted.There is severe diffuse osteopenia. The alignment i s maintained. The other visualized bones are unremarkable. The ankle mortise is intact. The retrocalc aneal region is unremarkable. The sinus tarsi is within normal limits. The visualized muscles and ten dons are grossly unremarkable.Impression:Findings suggestive of extensive severe deep tissue infectio n in the forefoot with associated multiple age indeterminate pathological fractures in the 1st, 2nd, 3rd and 4th toes as described above. Osteomyelitic changes in the proximal phalanx of the great toe. Recommend clinical correlation and follow-up. Report Electronically Signed By: Fco Fernández 4 5:17:32 AM [EST]
--- NOTE | 2024-03-13 07:02 | EDNOTE_ITS ---
Emergency Room Addendum Addendum Narrative: 0600: Care assumed from Dr. Burgos, the previous shift emergency physician. Past medical, surgical, social and family history reviewed. Vitals and home medications reviewed. I will assume the care of the patient at this time, pending transfer. Please refer to the emergency department record for history and examination from initial visit.? Nursing notes reviewed by me. Vital signs reviewed by me. [facility] medical records reviewed by me. Per EMR review, ortho Dr. Dennis was consulted last night and advised transferring to facility with higher level of care. Patient diagnosed with DKA, gangrene of the right foot and right fifth finger, fracture of left hip, osteolytic lesions of the left hip. Patient being transferred for the following services; ortho, critical care, vascular, hematology-oncology. 0850: I spoke with transfer nurse at [facility]. Discussed patients PMHx, HPI, ED course, exam findings, labs, and radiology results. States she will present the case and call back. 0945: Patient has been accepted for transfer by Dr. Larsen at [facility], ER to ER. 1145: EMS here to txfer patient.
--- NOTE | 2024-03-13 07:14 | PC.NURSE ---
Pt. here from home to room 5 pt. laying in bed, pt. states he has pain all over 11/29, pt. states he fell on and has a left hip fracture, pt. states that his 5th digit on his right hand has been black in color for 3 days, the top of pt.'s 5th digit is black and goes down almost half of 5th digit, pt.'s right hand also has edema to his whole hand, pt.'s right 5 toes are black in color and pt.'s 2nd toe on right foot is draining montelongo color fluid, fluid smells so very bad, pt. states that his right foot has been black in color for 1 week. Pt. states he was walking at home till he fell on and hurt his hip. Pt. states he lives with his brother.
--- NOTE | 2024-03-13 07:22 | PC.CM ---
Addendum entered by Dago Beauchamp RN 03/13/24 11:45: 1145 called [facility], spoke to Marlee and informed continuous pickling line pickler time is 1200. late note [address] Bass regarding transport setup. Dr. Bass stated there is no need for [facility] transport. Pt can go by ground and no need for stat transport. Addendum entered by Dago Beauchamp RN 03/13/24 11:14: 1108 sent paperwork to [facility]. Called [facility], spoke to [facility] and setup the transport. tracer lathe set up operator time is 1200. Addendum entered by Dago Beauchamp RN 03/13/24 11:12: 1035 transfer packet is complete with CD inside including all signatures. Transfer packet given to charge nurse and number to call for report is on tracker. Addendum entered by Dago Beauchamp RN 03/13/24 09:44: 0942 received call from Marlee at [facility] that pt is accepted at [facility] for ED to ED transfer. Accepted by Zia Espinoza. Number to call report is [phone]. Addendum entered by Dago Beauchamp RN 03/13/24 08:51: 0848 Marlee from [facility] called back and I connected conference call with Dr. Bass. 0827 Dr. Bass is available now. I called [facility] to connect Dr. Bass. Left VM. Addendum entered by Dago Beauchamp RN 03/13/24 08:20: 0818 called [facility], spoke to Marlee and initiated the transfer request. She stated she wants to speak with Dr. Bass. I checked with ED and Dr. Bass is with the pt and unable to speak at this time. I informed Marlee I will call back once is available. Addendum entered by Dago Beauchamp RN 03/13/24 07:42: 0742 clinicals sent to [facility] and [facility]. Original Note: 0715 received called from charge nurse pt has multiple pathologic fractures needs to be transferred. Charge nurse also informed me that night charge nurse pushed images to [facility]. Spoke to Dr. Bass regarding dx and services requested. Patient diagnosis DKA, gangrene of the right foot and right fifth finger, pathologic fracture of left hip, osteolytic lesions of the left hip. Patient being transferred for orthopedic, critical care, vascular, hematology-oncology services.
[2024-03-13] MEDS: SODIUM CHLORIDE 0.9% 1000 ML 1,000 ML 250 ML IV (08:02)
[2024-03-13] MEDS: RINGERS LACTATED 1000 ML 1,000 ML 250 ML IV (11:43)
[2024-03-13 11:48] LABS: Anion Gap 7 (7-16); BUN/Creatinine Ratio 42 Ratio (12-20); Blood Urea Nitrogen 38 mg/dL (9-23); Calcium 8.1 mg/dL (8.3-10.6); Carbon Dioxide 23.7 mMol/L (20.0-31.0); Chloride 98 mMol/L (98-107); Creatinine (Component) 0.9 mg/dL (0.6-1.3); Estimated Creatinine Clearance 96.3 mL/min (>60); Glucose 160 mg/dL (74-106); Osmolality,Calculated 270 (275-295); Potassium 3.2 mMol/L (3.4-5.1); Sodium 129 mMol/L (136-145); eGFR > 60 See Note
== END 2024-03-13 11:58 | disposition short-term general hospital (02) ==
PROVIDERS: Emergency Medicine; Physician Assistant; Emergency Provider Emergency Medicine
DX: S72.002A Fracture of unspecified part of neck of left femur, initial encounter for closed fracture (principal); Z91.148 Patient's other noncompliance with medication regimen for other reason; E87.8 Other disorders of electrolyte and fluid balance, not elsewhere classified; E11.10 Type 2 diabetes mellitus with ketoacidosis without coma; E11.52 Type 2 diabetes mellitus with diabetic peripheral angiopathy with gangrene; M89.58 Osteolysis, other site; S29.9XXA Unspecified injury of thorax, initial encounter; S19.9XXA Unspecified injury of neck, initial encounter; C79.51 Secondary malignant neoplasm of bone; S09.90XA Unspecified injury of head, initial encounter; W18.2XXA Fall in (into) shower or empty bathtub, initial encounter; Y93.E1 Activity, personal bathing and showering; M84.477A Pathological fracture, right toe(s), initial encounter for fracture; E11.69 Type 2 diabetes mellitus with other specified complication; M86.8X8 Other osteomyelitis, other site; C80.1 Malignant (primary) neoplasm, unspecified; R42 Dizziness and giddiness; Z79.4 Long term (current) use of insulin; Z79.84 Long term (current) use of oral hypoglycemic drugs; Z75.1 Person awaiting admission to adequate facility elsewhere
CPT/HCPCS: 36415; 36600; 70450; 71045; 72125; 73140; 73502; 73503; 73552; 73700; 80048; 80053; 80307; 80320; 81001; 82010; 82803; 83605; 84145; 84484; 85025; 85610; 85730; 86850; 86900; 86901; 87040; 87077; 87186; 93005; 96361; 96365; 96366; 96367; 99291; J1815; J2543; J3371; J3480; J7030; J7050; J7120; G0480; J3370